=== PATIENT | male | born 1965 ===

== ENCOUNTER 2017-11-22 09:53 | Emergency (ER) | payer OTHER ==
[~2017-11-22] VITALS: Ht 177.8 cm; Wt 106.6 kg
[2017-11-22] MEDS ORDERED: ZITHROMAX500 MG PO (11:15)
[2017-11-22] MEDS ORDERED: PROMETHAZINE W473 ML PO (11:15)
[2017-11-22] MEDS ORDERED: TESSALON PERLE100 M1 PO (11:15)
== END 2017-11-22 11:28 | disposition home or self-care (01) ==
LOC: ER 09:53
DX: R05 Cough (principal)

== ENCOUNTER 2020-04-09 19:44 | Emergency (ER) | payer OTHER ==
[~2020-04-09] VITALS: Ht 177.8 cm; Wt 114.3 kg
[~2020-04-09 19:44] MED LIST: PROMETHAZINE W473 ML PO; TESSALON PERLE100 M1 PO; ZITHROMAX500 MG PO
== END 2020-04-09 20:53 | disposition home or self-care (01) ==
LOC: ER 19:44
DX: M54.5 Low back pain (principal)

== ENCOUNTER 2020-04-20 08:16 | Outpatient (CLI) | payer OTHER | END 2020-04-20 08:24 | disposition home or self-care (01) | LOC: RAD 08:16 | PROVIDERS: ATTEND Physical Medicine & Rehabilitation | DX: M43.8X7 Other specified deforming dorsopathies, lumbosacral region (principal); M54.5 Low back pain; M54.16 Radiculopathy, lumbar region ==

== ENCOUNTER 2020-09-18 22:40 | Emergency (ER) | payer OTHER ==
[~2020-09-18] VITALS: Ht 180.3 cm; Wt 110.7 kg
[2020-09-19] MEDS ORDERED: COLCRYS0.6 MG PO (01:41)
[2020-09-19] MEDS ORDERED: KETO10TA2 PO (01:41)
== END 2020-09-19 01:57 | disposition home or self-care (01) ==
LOC: ER 22:40
DX: M10.071 Idiopathic gout, right ankle and foot (principal); M25.571 Pain in right ankle and joints of right foot

== ENCOUNTER 2021-04-19 08:42 | Emergency (ER) | payer OTHER ==
[~2021-04-19] VITALS: Ht 177.8 cm; Wt 115.7 kg
[~2021-04-19 08:42] MED LIST changes: +COLCRYS0.6 MG PO; +KETO10TA2 PO
== END 2021-04-19 09:20 | disposition home or self-care (01) ==
LOC: ER 08:42
DX: L73.8 Other specified follicular disorders (principal)

== ENCOUNTER 2024-12-11 09:30 | Outpatient (CLI) | payer OTHER | END 2024-12-11 09:37 | disposition home or self-care (01) | LOC: RAD 09:30 | PROVIDERS: ATTEND Physical Medicine & Rehabilitation | DX: M54.2 Cervicalgia (principal) ==